=== PATIENT | female | born 1990 | race African-American/Black ===

== ENCOUNTER 2022-06-01 14:57 | Emergency (ER) | payer SELFPAY | END 2022-06-01 17:25 | disposition home or self-care (01) | LOC: ERS 14:57 | DX: M72.2 Plantar fascial fibromatosis (principal); I10 Essential (primary) hypertension; F17.210 Nicotine dependence, cigarettes, uncomplicated ==

== ENCOUNTER 2022-09-25 13:34 | Emergency (ER) | payer SELFPAY ==
[2022-09-25] MEDS ORDERED: Dexamethasone 10 MG/ML VIAL ONE (18:01)
[2022-09-25] MEDS ORDERED: Albuterol 200 PUFF INH ONE ×2 (18:08→18:10)
[2022-09-25] MEDS ORDERED: Albuterol 200 PUFF (6.7GM INHALER) INH SCH (18:30)
[2022-09-25 19:39] LABS: SARS-CoV-2 NAA Rapid Test Not Detected (NotDetected)
== END 2022-09-25 19:06 | disposition home or self-care (01) ==
LOC: ERS 13:34
DX: J06.9 Acute upper respiratory infection, unspecified (principal); I10 Essential (primary) hypertension; F17.210 Nicotine dependence, cigarettes, uncomplicated; Z20.822 Contact with and (suspected) exposure to COVID-19
CPT/HCPCS: 71045; J1100